=== PATIENT | female | born 1950 | race Caucasian/White ===

== ENCOUNTER 2017-03-21 19:28 | Inpatient (IN) | payer BC ==
[~2017-03-21] VITALS: Ht 165.1 cm; Wt 86.0 kg
[2017-03-21 19:55] LABS: BASOPHIL COUNT 0.1 K/uL (0-0.1); EOSINOPHIL (%) 0.6 % (0-5); EOSINOPHIL COUNT 0.1 K/uL (0-0.3); HEMATOCRIT 41.6 % (36.0-46.0); IMMATURE GRANULOCYTE (%) 1.4 % (0.0-0.7); IMMATURE GRANULOCYTE COUNT 0.2 K/uL; INSTRUMENT ABS NEUTROPHIL CT 9.5 K/uL; LYMPHOCYTE COUNT 4.9 K/uL (1.0-2.8); MCH 28.3 PG (29.0-34.0); MCHC 32.2 G/DL (30.0-36.0); MCV 87.8 FL (83-99); MEAN PLAT.VOLUME 9.2 uM^3 (9.5-12.4); MONOCYTE (%) 5.9 % (3-12); MONOCYTE COUNT 0.9 K/uL (0-0.8); NEUTROPHIL (%) 60.6 % (45-76); NEUTROPHIL COUNT 9.5 K/uL (1.8-6.4); PLATELET COUNT 348 K/uL (156-360); RBC DIS.WIDTH-SD 42.1 % (39-53); RED BLOOD COUNT 4.74 M/uL (3.80-5.20); WHITE BLOOD COUNT 15.6 K/uL (4.1-10.2)
[2017-03-21 20:03] LABS: POINT-OF-CARE METER ID UU13113702
[2017-03-21 20:05] LABS: AMYLASE 76 IU/L (1-118); CHLORIDE 104 mEq/L (99-109); POTASSIUM 3.6 mEq/L (3.7-5.4); SODIUM 139 mEq/L (136-147)
[2017-03-21 20:07] LABS: GLUCOSE 296 mg/dL (70-99)
[2017-03-21 20:08] LABS: ANION GAP 19 MEQ/L (2-14)
[2017-03-21 20:09] LABS: INTER. NORMALIZED RATIO 1.1
[2017-03-21 20:10] LABS: SERUM ETHYL ALCOHOL < 10 mg/dL
[2017-03-21 20:11] LABS: GFR ESTIMATE (CALCULATED) 44 mL/min/
[2017-03-21 20:12] LABS: PTT 26.8 SEC (25-37); UREA NITROGEN (BUN) 20 mg/dL (9-23)
[2017-03-21 20:14] LABS: LIPASE 24 U/L (1.0-51.0)
[2017-03-21 20:18] LABS: TROP-I INTERPRETATION POSITIVE
[2017-03-21 22:23] VITALS: BP 145/97
[2017-03-21 22:30] VITALS: BP 137/97
[2017-03-21 23:00] VITALS: BP 127/76
[2017-03-21 23:46] LABS: BASE EXCESS -6.9 mEq/L (-3 to +3); BICARBONATE 19.7 mEq/L (22-26); COMMENTS - BLOOD GASES C+; DEVICE 840; FI02 100 %; MECHANICAL RATE 20 resp/min; METHEMOGLOBIN 1.4 % (0-1.5); MODE AC; PCO2 43 mm Hg (35-45); PEEP 5 CM/H20; PO2 193 mm Hg (80-100); SITE ALINE; TIDAL VOLUME 400 ML; TOTAL RESP RATE 20 resp/min; pH 7.27 (7.35-7.45)
[2017-03-21 23:48] LABS: METH RESISTANT S AUREUS PCR NEGATIVE (NEGATIVE); PROBE CHECK PASS; SPECIMEN PROCESSING CONTROL PASS
[2017-03-22] VITALS (27 sets, daily range): BP systolic 62–186; BP diastolic 44–122
[2017-03-22 03:19] LABS: EOSINOPHIL (%) 0 % (0-5); HEMATOCRIT 36.3 % (36.0-46.0); IMMATURE GRANULOCYTE (%) 0.6 % (0.0-0.7); IMMATURE GRANULOCYTE COUNT 0.1 K/uL; INSTRUMENT ABS NEUTROPHIL CT 17.7 K/uL; LYMPHOCYTE COUNT 1.9 K/uL (1.0-2.8); MCH 28.7 PG (29.0-34.0); MCHC 32.2 G/DL (30.0-36.0); MEAN PLAT.VOLUME 9.3 uM^3 (9.5-12.4); MONOCYTE (%) 5.3 % (3-12); MONOCYTE COUNT 1.1 K/uL (0-0.8); NEUTROPHIL (%) 85.1 % (45-76); NEUTROPHIL COUNT 17.7 K/uL (1.8-6.4); PLATELET COUNT 387 K/uL (156-360); RBC DIS.WIDTH-CV 13.3 % (11.8-14.6); RBC DIS.WIDTH-SD 43.6 % (39-53); RED BLOOD COUNT 4.08 M/uL (3.80-5.20); WHITE BLOOD COUNT 20.8 K/uL (4.1-10.2)
[2017-03-22 03:27] LABS: INTER. NORMALIZED RATIO 1.2; PROTHROMBIN TIME 13.1 SEC (10.2-12.9)
[2017-03-22 03:33] LABS: CHLORIDE 106 mEq/L (99-109); POTASSIUM 3.9 mEq/L (3.7-5.4); SODIUM 140 mEq/L (136-147)
[2017-03-22 03:35] LABS: GLUCOSE 204 mg/dL (70-99)
[2017-03-22 03:36] LABS: ANION GAP 15 MEQ/L (2-14)
[2017-03-22 03:39] LABS: GFR ESTIMATE (CALCULATED) 48 mL/min/
[2017-03-22 03:40] LABS: UREA NITROGEN (BUN) 22 mg/dL (9-23)
[2017-03-22 03:54] LABS: TROP-I INTERPRETATION POSITIVE
[2017-03-22 04:00] LABS: TROPONIN-I 48.81 ng/mL (0.0-0.30)
[2017-03-22 04:08] LABS: TRIGLYCERIDES 359 MG/DL (Normal: <150)
[2017-03-22 06:07] LABS: BASE EXCESS -7.7 mEq/L (-3 to +3); BICARBONATE 17.5 mEq/L (22-26); COMMENTS - BLOOD GASES C+; DEVICE VENT; FI02 60 %; MECHANICAL RATE 24 resp/min; METHEMOGLOBIN 1.5 % (0-1.5); MODE AC; PCO2 34 mm Hg (35-45); PEEP 5 CM/H20; PO2 113 mm Hg (80-100); SITE LR; TIDAL VOLUME 430 ML; TOTAL RESP RATE 34 resp/min; pH 7.32 (7.35-7.45)
[2017-03-22 06:33] LABS: POINT-OF-CARE METER ID UU14208751
[2017-03-22 07:03] LABS: EOSINOPHIL (%) 0 % (0-5); HEMATOCRIT 33.9 % (36.0-46.0); IMMATURE GRANULOCYTE (%) 0.5 % (0.0-0.7); IMMATURE GRANULOCYTE COUNT 0.1 K/uL; INSTRUMENT ABS NEUTROPHIL CT 15.2 K/uL; LYMPHOCYTE COUNT 1.9 K/uL (1.0-2.8); MCH 28.6 PG (29.0-34.0); MCHC 31.9 G/DL (30.0-36.0); MCV 89.9 FL (83-99); MEAN PLAT.VOLUME 9.6 uM^3 (9.5-12.4); MONOCYTE (%) 5.3 % (3-12); NEUTROPHIL (%) 83.5 % (45-76); NEUTROPHIL COUNT 15.2 K/uL (1.8-6.4); PLATELET COUNT 359 K/uL (156-360); RBC DIS.WIDTH-CV 13.3 % (11.8-14.6); RBC DIS.WIDTH-SD 43.7 % (39-53); RED BLOOD COUNT 3.77 M/uL (3.80-5.20); WHITE BLOOD COUNT 18.3 K/uL (4.1-10.2)
[2017-03-22 07:11] LABS: INTER. NORMALIZED RATIO 1.2; PROTHROMBIN TIME 13.2 SEC (10.2-12.9)
[2017-03-22 07:14] LABS: PTT 27.3 SEC (25-37)
[2017-03-22 07:19] LABS: ANION GAP 14 MEQ/L (2-14); CHLORIDE 105 MEQ/L (99-109); MAGNESIUM 2.2 mg/dl (1.3-2.7); POTASSIUM 4.2 MEQ/L (3.7-5.4); SAMPLE HEMOLYSIS CHECK 0; SAMPLE ICTERIC CHECK 0; SAMPLE LIPEMIA CHECK 1; SODIUM 140 MEQ/L (136-147)
[2017-03-22 07:25] LABS: Estimated Average Glucose 126 mg/dL (70-123); GFR ESTIMATE (CALCULATED) 53 mL/min/; GLUCOSE 204 mg/dL (70-99); UREA NITROGEN (BUN) 24 mg/dL (9-23)
[2017-03-22 07:32] LABS: HDL CHOLESTEROL 28 MG/DL (Desirable>=50); NON-HDL CHOLESTEROL 178 mg/dL (Desirable<160); TOTAL CHOLESTEROL 206 mg/dL (Desirable<200); TRIGLYCERIDES 529 MG/DL (Normal: <150)
[2017-03-22 07:33] LABS: ALKALINE PHOSPHATASE 95 IU/L (3-129); ANION GAP 12 MEQ/L (2-14); CHLORIDE 107 MEQ/L (99-109); GFR ESTIMATE (CALCULATED) 48 mL/min/; GLUCOSE 197 mg/dL (70-99); POTASSIUM 4.2 MEQ/L (3.7-5.4); SAMPLE HEMOLYSIS CHECK 0; SAMPLE ICTERIC CHECK 0; SAMPLE LIPEMIA CHECK 0; SODIUM 142 MEQ/L (136-147); TOTAL BILIRUBIN 0.5 MG/DL (0.0-1.0); UREA NITROGEN (BUN) 23 mg/dL (9-23)
[2017-03-22 07:47] LABS: TROP-I INTERPRETATION POSITIVE; TROPONIN-I 55.59 ng/mL (0.0-0.30)
[2017-03-22 10:54] LABS: BASE EXCESS -7.9 mEq/L (-3 to +3); BICARBONATE 17.6 mEq/L (22-26); CARBOXY HGB 1.7 % (0-5); COMMENTS - BLOOD GASES A+C+; DEVICE VENT; FI02 60 %; MECHANICAL RATE 24 resp/min; METHEMOGLOBIN 1.7 % (0-1.5); MODE ACVC; PCO2 35 mm Hg (35-45); PEEP 5 CM/H20; PO2 129 mm Hg (80-100); SITE LR; TIDAL VOLUME 430 ML; TOTAL RESP RATE 24 resp/min; pH 7.31 (7.35-7.45)
[2017-03-22 11:53] LABS: POINT-OF-CARE METER ID UU14208751
[2017-03-22 12:57] LABS: EOSINOPHIL (%) 0 % (0-5); HEMATOCRIT 34.1 % (36.0-46.0); IMMATURE GRANULOCYTE (%) 0.6 % (0.0-0.7); IMMATURE GRANULOCYTE COUNT 0.1 K/uL; LYMPHOCYTE COUNT 2.8 K/uL (1.0-2.8); MCH 29.8 PG (29.0-34.0); MCHC 33.1 G/DL (30.0-36.0); MEAN PLAT.VOLUME 9.7 uM^3 (9.5-12.4); MONOCYTE (%) 7.6 % (3-12); MONOCYTE COUNT 1.5 K/uL (0-0.8); NEUTROPHIL (%) 77.1 % (45-76); PLATELET COUNT 308 K/uL (156-360); RBC DIS.WIDTH-CV 13.6 % (11.8-14.6); RBC DIS.WIDTH-SD 44.6 % (39-53); RED BLOOD COUNT 3.79 M/uL (3.80-5.20); WHITE BLOOD COUNT 19.5 K/uL (4.1-10.2)
[2017-03-22 13:28] LABS: ANION GAP 11 MEQ/L (2-14); CHLORIDE 108 MEQ/L (99-109); GFR ESTIMATE (CALCULATED) 53 mL/min/; GLUCOSE 171 mg/dL (70-99); MAGNESIUM 2.2 mg/dl (1.3-2.7); POTASSIUM 4.1 MEQ/L (3.7-5.4); SAMPLE HEMOLYSIS CHECK 0; SAMPLE ICTERIC CHECK 0; SAMPLE LIPEMIA CHECK 1; SODIUM 142 MEQ/L (136-147); UREA NITROGEN (BUN) 25 mg/dL (9-23)
[2017-03-22 13:45] LABS: CREATINE KINASE 2552 IU/L (1-294); TOTAL CK 2552 IU/L (1-294)
[2017-03-22 13:46] LABS: TROP-I INTERPRETATION POSITIVE; TROPONIN-I 46.61 ng/mL (0.0-0.30)
[2017-03-22 14:14] LABS: CK-MB 437.6 ng/mL (0.0-4.9)
[2017-03-22 16:59] LABS: POINT-OF-CARE METER ID UU14174217
[2017-03-22 18:12] LABS: EOSINOPHIL (%) 0 % (0-5); HEMATOCRIT 35.1 % (36.0-46.0); IMMATURE GRANULOCYTE (%) 0.5 % (0.0-0.7); IMMATURE GRANULOCYTE COUNT 0.1 K/uL; INSTRUMENT ABS NEUTROPHIL CT 11.8 K/uL; LYMPHOCYTE COUNT 2.4 K/uL (1.0-2.8); MCH 28.6 PG (29.0-34.0); MCHC 31.9 G/DL (30.0-36.0); MCV 89.5 FL (83-99); MEAN PLAT.VOLUME 9.5 uM^3 (9.5-12.4); MONOCYTE (%) 6.9 % (3-12); MONOCYTE COUNT 1.1 K/uL (0-0.8); NEUTROPHIL (%) 76.4 % (45-76); NEUTROPHIL COUNT 11.8 K/uL (1.8-6.4); PLATELET COUNT 270 K/uL (156-360); RBC DIS.WIDTH-CV 13.4 % (11.8-14.6); RBC DIS.WIDTH-SD 43.9 % (39-53); RED BLOOD COUNT 3.92 M/uL (3.80-5.20); WHITE BLOOD COUNT 15.4 K/uL (4.1-10.2)
[2017-03-22 18:21] LABS: INTER. NORMALIZED RATIO 1.1; PROTHROMBIN TIME 12.3 SEC (10.2-12.9)
[2017-03-22 18:23] LABS: PTT 26.9 SEC (25-37)
[2017-03-22 18:28] LABS: ANION GAP 13 MEQ/L (2-14); CHLORIDE 109 MEQ/L (99-109); GFR ESTIMATE (CALCULATED) > 59 mL/min/; GLUCOSE 141 mg/dL (70-99); MAGNESIUM 2.3 mg/dl (1.3-2.7); SAMPLE HEMOLYSIS CHECK 0; SAMPLE ICTERIC CHECK 0; SAMPLE LIPEMIA CHECK 0; SODIUM 144 MEQ/L (136-147); UREA NITROGEN (BUN) 27 mg/dL (9-23)
[2017-03-22 18:31] LABS: TROP-I INTERPRETATION POSITIVE
[2017-03-22 20:27] LABS: TOTAL CK 2621 IU/L (1-294)
[2017-03-22 20:28] LABS: CREATINE KINASE 2621 IU/L (1-294)
[2017-03-22 20:59] LABS: CK-MB 533.2 ng/mL (0.0-4.9)
[2017-03-23] VITALS (22 sets, daily range): BP systolic 92–159; BP diastolic 58–92
[2017-03-23 01:05] LABS: POINT-OF-CARE METER ID UU14208751
[2017-03-23 01:54] LABS: BASE EXCESS -2.1 mEq/L (-3 to +3); BICARBONATE 23.7 mEq/L (22-26); CARBOXY HGB 1.4 % (0-5); COMMENTS - BLOOD GASES C+; DEVICE VENT; FI02 60 %; MECHANICAL RATE 12 resp/min; METHEMOGLOBIN 1.9 % (0-1.5); MODE AC; PCO2 44 mm Hg (35-45); PEEP 8 CM/H20; PO2 124 mm Hg (80-100); SITE LR; TIDAL VOLUME 500 ML; TOTAL RESP RATE 20 resp/min; pH 7.34 (7.35-7.45)
[2017-03-23 02:54] LABS: EOSINOPHIL (%) 0.2 % (0-5); HEMATOCRIT 33.3 % (36.0-46.0); IMMATURE GRANULOCYTE (%) 0.5 % (0.0-0.7); IMMATURE GRANULOCYTE COUNT 0.1 K/uL; INSTRUMENT ABS NEUTROPHIL CT 14.1 K/uL; LYMPHOCYTE COUNT 3.2 K/uL (1.0-2.8); MCH 28.8 PG (29.0-34.0); MCHC 32.4 G/DL (30.0-36.0); MCV 88.8 FL (83-99); MEAN PLAT.VOLUME 9.6 uM^3 (9.5-12.4); MONOCYTE (%) 8.2 % (3-12); MONOCYTE COUNT 1.6 K/uL (0-0.8); NEUTROPHIL (%) 74.3 % (45-76); NEUTROPHIL COUNT 14.1 K/uL (1.8-6.4); PLATELET COUNT 288 K/uL (156-360); RBC DIS.WIDTH-CV 13.5 % (11.8-14.6); RBC DIS.WIDTH-SD 44.3 % (39-53); RED BLOOD COUNT 3.75 M/uL (3.80-5.20)
[2017-03-23 03:02] LABS: INTER. NORMALIZED RATIO 1.1; PROTHROMBIN TIME 11.8 SEC (10.2-12.9)
[2017-03-23 03:09] LABS: CHLORIDE 108 mEq/L (99-109); POTASSIUM 4.2 mEq/L (3.7-5.4); SODIUM 143 mEq/L (136-147)
[2017-03-23 03:11] LABS: GLUCOSE 120 mg/dL (70-99)
[2017-03-23 03:12] LABS: ANION GAP 16 MEQ/L (2-14)
[2017-03-23 03:15] LABS: GFR ESTIMATE (CALCULATED) > 59 mL/min/
[2017-03-23 03:16] LABS: UREA NITROGEN (BUN) 30 mg/dL (9-23)
[2017-03-23 03:17] LABS: MAGNESIUM 2.4 mg/dL (1.3-2.7)
[2017-03-23 03:19] LABS: TROP-I INTERPRETATION POSITIVE
[2017-03-23 03:23] LABS: TROPONIN-I 43.71 ng/mL (0.0-0.30)
[2017-03-23 08:23] LABS: EOSINOPHIL (%) 0.1 % (0-5); HEMATOCRIT 29.5 % (36.0-46.0); IMMATURE GRANULOCYTE (%) 0.5 % (0.0-0.7); IMMATURE GRANULOCYTE COUNT 0.1 K/uL; INSTRUMENT ABS NEUTROPHIL CT 13.6 K/uL; LYMPHOCYTE COUNT 1.9 K/uL (1.0-2.8); MCH 28.6 PG (29.0-34.0); MCHC 32.2 G/DL (30.0-36.0); MCV 88.9 FL (83-99); MEAN PLAT.VOLUME 9.8 uM^3 (9.5-12.4); MONOCYTE (%) 5.4 % (3-12); MONOCYTE COUNT 0.9 K/uL (0-0.8); NEUTROPHIL (%) 82.3 % (45-76); NEUTROPHIL COUNT 13.6 K/uL (1.8-6.4); PLATELET COUNT 248 K/uL (156-360); RBC DIS.WIDTH-CV 13.5 % (11.8-14.6); RBC DIS.WIDTH-SD 44.2 % (39-53); RED BLOOD COUNT 3.32 M/uL (3.80-5.20); WHITE BLOOD COUNT 16.5 K/uL (4.1-10.2)
[2017-03-23 08:29] LABS: INTER. NORMALIZED RATIO 1.1; PROTHROMBIN TIME 12.5 SEC (10.2-12.9)
[2017-03-23 08:32] LABS: PTT 32.8 SEC (25-37)
[2017-03-23 08:47] LABS: ANION GAP 10 MEQ/L (2-14); CHLORIDE 112 MEQ/L (99-109); GFR ESTIMATE (CALCULATED) 53 mL/min/; GLUCOSE 154 mg/dL (70-99); MAGNESIUM 2.2 mg/dl (1.3-2.7); SAMPLE HEMOLYSIS CHECK 0; SAMPLE ICTERIC CHECK 0; SAMPLE LIPEMIA CHECK 0; SODIUM 143 MEQ/L (136-147); UREA NITROGEN (BUN) 30 mg/dL (9-23)
[2017-03-23 08:52] LABS: TROP-I INTERPRETATION POSITIVE; TROPONIN-I 32.43 ng/mL (0.0-0.30)
[2017-03-23 11:46] LABS: POINT-OF-CARE METER ID UU14208751
[2017-03-23 13:24] LABS: EOSINOPHIL (%) 0.1 % (0-5); HEMATOCRIT 28.4 % (36.0-46.0); IMMATURE GRANULOCYTE (%) 0.4 % (0.0-0.7); IMMATURE GRANULOCYTE COUNT 0.1 K/uL; INSTRUMENT ABS NEUTROPHIL CT 12.8 K/uL; LYMPHOCYTE COUNT 2.6 K/uL (1.0-2.8); MCH 28.9 PG (29.0-34.0); MCHC 32.4 G/DL (30.0-36.0); MCV 89.3 FL (83-99); MEAN PLAT.VOLUME 9.7 uM^3 (9.5-12.4); MONOCYTE (%) 5.9 % (3-12); NEUTROPHIL (%) 77.9 % (45-76); NEUTROPHIL COUNT 12.8 K/uL (1.8-6.4); PLATELET COUNT 250 K/uL (156-360); RBC DIS.WIDTH-CV 13.5 % (11.8-14.6); RBC DIS.WIDTH-SD 44.3 % (39-53); RED BLOOD COUNT 3.18 M/uL (3.80-5.20); WHITE BLOOD COUNT 16.4 K/uL (4.1-10.2)
[2017-03-23 13:35] LABS: INTER. NORMALIZED RATIO 1.1; PROTHROMBIN TIME 12.2 SEC (10.2-12.9)
[2017-03-23 13:38] LABS: PTT 32.6 SEC (25-37)
[2017-03-23 13:51] LABS: TROPONIN-I 28.89 ng/mL (0.0-0.30)
[2017-03-23 13:52] LABS: TROP-I INTERPRETATION POSITIVE
[2017-03-23 13:54] LABS: ANION GAP 12 MEQ/L (2-14); CHLORIDE 112 MEQ/L (99-109); GFR ESTIMATE (CALCULATED) 53 mL/min/; MAGNESIUM 2.1 mg/dl (1.3-2.7); POTASSIUM 3.9 MEQ/L (3.7-5.4); SAMPLE HEMOLYSIS CHECK 0; SAMPLE ICTERIC CHECK 0; SAMPLE LIPEMIA CHECK 0; SODIUM 144 MEQ/L (136-147); UREA NITROGEN (BUN) 29 mg/dL (9-23)
[2017-03-23 13:56] LABS: GLUCOSE 103 mg/dL (70-99)
[2017-03-23 17:50] LABS: POINT-OF-CARE METER ID UU14208751
[2017-03-23 20:21] LABS: HEMATOCRIT 27.5 % (36.0-46.0); MCH 29.5 PG (29.0-34.0); MCHC 32.4 G/DL (30.0-36.0); MCV 91.1 FL (83-99); RBC DIS.WIDTH-CV 13.9 % (11.8-14.6); RED BLOOD COUNT 3.02 M/uL (3.80-5.20); WHITE BLOOD COUNT 14.4 K/uL (4.1-10.2)
[2017-03-23 20:24] LABS: PLATELET COUNT 135 K/uL (156-360); PROTHROMBIN TIME 11.4 SEC (10.2-12.9)
[2017-03-23 20:36] LABS: ANION GAP 14 MEQ/L (2-14); CHLORIDE 111 MEQ/L (99-109); MAGNESIUM 2.1 mg/dl (1.3-2.7); SAMPLE HEMOLYSIS CHECK 0; SAMPLE ICTERIC CHECK 0; SAMPLE LIPEMIA CHECK 0; SODIUM 146 MEQ/L (136-147)
[2017-03-23 20:38] LABS: PTT ND SEC (25-37)
[2017-03-23 20:41] LABS: GFR ESTIMATE (CALCULATED) 48 mL/min/; GLUCOSE 123 mg/dL (70-99); UREA NITROGEN (BUN) 32 mg/dL (9-23)
[2017-03-23 20:45] LABS: TROP-I INTERPRETATION POSITIVE; TROPONIN-I 37.79 ng/mL (0.0-0.30)
[2017-03-23 21:14] LABS: EOSINOPHIL (%) 0 % (0-5); IMMATURE GRANULOCYTE (%) 0.5 % (0.0-0.7); IMMATURE GRANULOCYTE COUNT 0.1 K/uL; INSTRUMENT ABS NEUTROPHIL CT 11.3 K/uL; LYMPHOCYTE COUNT 2.1 K/uL (1.0-2.8); MONOCYTE (%) 6.1 % (3-12); MONOCYTE COUNT 0.9 K/uL (0-0.8); NEUTROPHIL (%) 78.7 % (45-76); NEUTROPHIL COUNT 11.3 K/uL (1.8-6.4); PLAT.SUFFICIENCY DECREASED
[2017-03-24] VITALS (25 sets, daily range): BP systolic 71–171; BP diastolic 44–111
[2017-03-24 00:28] LABS: POINT-OF-CARE METER ID UU13113731
[2017-03-24 06:16] LABS: POINT-OF-CARE METER ID UU14174217
[2017-03-24 06:49] LABS: EOSINOPHIL (%) 0 % (0-5); HEMATOCRIT 24.6 % (36.0-46.0); IMMATURE GRANULOCYTE (%) 0.6 % (0.0-0.7); IMMATURE GRANULOCYTE COUNT 0.1 K/uL; INSTRUMENT ABS NEUTROPHIL CT 9.4 K/uL; LYMPHOCYTE COUNT 2.3 K/uL (1.0-2.8); MCH 29.6 PG (29.0-34.0); MCHC 33.3 G/DL (30.0-36.0); MCV 88.8 FL (83-99); MEAN PLAT.VOLUME 10.3 uM^3 (9.5-12.4); MONOCYTE (%) 7.1 % (3-12); MONOCYTE COUNT 0.9 K/uL (0-0.8); NEUTROPHIL (%) 74.3 % (45-76); NEUTROPHIL COUNT 9.4 K/uL (1.8-6.4); PLATELET COUNT 231 K/uL (156-360); RBC DIS.WIDTH-CV 13.9 % (11.8-14.6); RBC DIS.WIDTH-SD 45.4 % (39-53); RED BLOOD COUNT 2.77 M/uL (3.80-5.20); WHITE BLOOD COUNT 12.6 K/uL (4.1-10.2)
[2017-03-24 06:55] LABS: INTER. NORMALIZED RATIO 1.2; PROTHROMBIN TIME 13.1 SEC (10.2-12.9); PTT 27.3 SEC (25-37)
[2017-03-24 07:33] LABS: TROP-I INTERPRETATION POSITIVE; TROPONIN-I 64.31 ng/mL (0.0-0.30)
[2017-03-24 07:37] LABS: ANION GAP 10 MEQ/L (2-14); CHLORIDE 112 MEQ/L (99-109); GFR ESTIMATE (CALCULATED) 34 mL/min/; GLUCOSE 130 mg/dL (70-99); MAGNESIUM 2.2 mg/dl (1.3-2.7); POTASSIUM 3.9 MEQ/L (3.7-5.4); SAMPLE HEMOLYSIS CHECK 0; SAMPLE ICTERIC CHECK 0; SAMPLE LIPEMIA CHECK 0; SODIUM 145 MEQ/L (136-147); UREA NITROGEN (BUN) 37 mg/dL (9-23)
[2017-03-24 07:38] LABS: CREATINE KINASE 1187 IU/L (1-294)
[2017-03-24 11:51] LABS: POINT-OF-CARE METER ID UU14174217
[2017-03-24 17:40] LABS: POINT-OF-CARE METER ID UU14174217
[2017-03-25] VITALS (30 sets, daily range): BP systolic 105–191; BP diastolic 47–123
[2017-03-25 00:22] LABS: POINT-OF-CARE METER ID UU14174217
[2017-03-25 05:37] LABS: CHLORIDE 116 mEq/L (99-109); POTASSIUM 3.7 mEq/L (3.7-5.4); SODIUM 148 mEq/L (136-147)
[2017-03-25 05:38] LABS: MAGNESIUM 2.5 mg/dL (1.3-2.7)
[2017-03-25 05:39] LABS: GLUCOSE 118 mg/dL (70-99)
[2017-03-25 05:41] LABS: ANION GAP 9 MEQ/L (2-14)
[2017-03-25 05:42] LABS: INTER. NORMALIZED RATIO 1.1; PROTHROMBIN TIME 12.3 SEC (10.2-12.9)
[2017-03-25 05:43] LABS: EOSINOPHIL (%) 0.1 % (0-5); HEMATOCRIT 20.8 % (36.0-46.0); IMMATURE GRANULOCYTE (%) 0.5 % (0.0-0.7); IMMATURE GRANULOCYTE COUNT 0.1 K/uL; INSTRUMENT ABS NEUTROPHIL CT 6.6 K/uL; LYMPHOCYTE COUNT 2.2 K/uL (1.0-2.8); MCH 28.6 PG (29.0-34.0); MCHC 32.7 G/DL (30.0-36.0); MCV 87.4 FL (83-99); MEAN PLAT.VOLUME 10.2 uM^3 (9.5-12.4); MONOCYTE (%) 6.7 % (3-12); MONOCYTE COUNT 0.6 K/uL (0-0.8); NEUTROPHIL (%) 69.7 % (45-76); NEUTROPHIL COUNT 6.6 K/uL (1.8-6.4); PLATELET COUNT 176 K/uL (156-360); RBC DIS.WIDTH-CV 14.2 % (11.8-14.6); RBC DIS.WIDTH-SD 44.7 % (39-53); RED BLOOD COUNT 2.38 M/uL (3.80-5.20); WHITE BLOOD COUNT 9.5 K/uL (4.1-10.2)
[2017-03-25 05:44] LABS: UREA NITROGEN (BUN) 40 mg/dL (9-23)
[2017-03-25 05:45] LABS: PTT 27.2 SEC (25-37)
[2017-03-25 05:46] LABS: TROP-I INTERPRETATION POSITIVE
[2017-03-25 05:48] LABS: GFR ESTIMATE (CALCULATED) 53 mL/min/; TROPONIN-I 22.15 ng/mL (0.0-0.30)
[2017-03-25 06:28] LABS: POINT-OF-CARE METER ID UU14174217
[2017-03-25 06:36] LABS: HEMATOCRIT 20.3 % (36.0-46.0); MCV 87.9 FL (83-99); MEAN PLAT.VOLUME 9.8 uM^3 (9.5-12.4); PLATELET COUNT 171 K/uL (156-360); RBC DIS.WIDTH-CV 14.1 % (11.8-14.6); RBC DIS.WIDTH-SD 44.7 % (39-53); RED BLOOD COUNT 2.31 M/uL (3.80-5.20); WHITE BLOOD COUNT 9.9 K/uL (4.1-10.2)
[2017-03-25 11:50] LABS: POINT-OF-CARE METER ID UU14174217
[2017-03-25 18:02] LABS: POINT-OF-CARE METER ID UU13113748
[2017-03-25 20:10] LABS: HEMATOCRIT 29.1 % (36.0-46.0); MCV 88.7 FL (83-99)
[2017-03-25 23:44] LABS: POINT-OF-CARE METER ID UU13113748; POINT-OF-CARE USER ID PHATLC
[2017-03-26] VITALS (25 sets, daily range): BP systolic 0–189; BP diastolic 0–93
[2017-03-26 06:01] LABS: POINT-OF-CARE METER ID UU13113731; POINT-OF-CARE USER ID PHATLC
[2017-03-26 06:18] LABS: EOSINOPHIL (%) 0.2 % (0-5); HEMATOCRIT 27.9 % (36.0-46.0); IMMATURE GRANULOCYTE (%) 0.8 % (0.0-0.7); IMMATURE GRANULOCYTE COUNT 0.1 K/uL; INSTRUMENT ABS NEUTROPHIL CT 9.7 K/uL; LYMPHOCYTE COUNT 2.1 K/uL (1.0-2.8); MCH 29.8 PG (29.0-34.0); MCHC 34.1 G/DL (30.0-36.0); MCV 87.5 FL (83-99); MEAN PLAT.VOLUME 9.8 uM^3 (9.5-12.4); MONOCYTE (%) 6.1 % (3-12); MONOCYTE COUNT 0.8 K/uL (0-0.8); NEUTROPHIL (%) 76.1 % (45-76); NEUTROPHIL COUNT 9.7 K/uL (1.8-6.4); NRBC (%) 0.2 /100 WBC (0-0); PLATELET COUNT 218 K/uL (156-360); RBC DIS.WIDTH-CV 14.5 % (11.8-14.6); RBC DIS.WIDTH-SD 45.5 % (39-53); WHITE BLOOD COUNT 12.7 K/uL (4.1-10.2)
[2017-03-26 06:36] LABS: INTER. NORMALIZED RATIO 1.1; PROTHROMBIN TIME 12.6 SEC (10.2-12.9)
[2017-03-26 06:39] LABS: PTT 20.1 SEC (25-37)
[2017-03-26 06:41] LABS: RED BLOOD COUNT 3.19 M/uL (3.80-5.20)
[2017-03-26 06:47] LABS: ANION GAP 11 MEQ/L (2-14); CHLORIDE 113 MEQ/L (99-109); GFR ESTIMATE (CALCULATED) > 59 mL/min/; GLUCOSE 125 mg/dL (70-99); MAGNESIUM 2.1 mg/dl (1.3-2.7); POTASSIUM 3.2 MEQ/L (3.7-5.4); SAMPLE HEMOLYSIS CHECK 0; SAMPLE ICTERIC CHECK 0; SAMPLE LIPEMIA CHECK 0; SODIUM 152 MEQ/L (136-147); UREA NITROGEN (BUN) 25 mg/dL (9-23)
[2017-03-26 07:05] LABS: TROP-I INTERPRETATION POSITIVE; TROPONIN-I 21.08 ng/mL (0.0-0.30)
[2017-03-26 12:11] LABS: POINT-OF-CARE METER ID UU13113731
[2017-03-26 12:47] LABS: ABSOLUTE RETICULOCYTE CT. 0.1 M/uL (0.02-0.08); IMM.RETIC FRACTION 32.1 % (3-19); RETICULOCYTE COUNT 2.3 % (0.5-1.8)
[2017-03-26 17:55] LABS: ALKALINE PHOSPHATASE 75 IU/L (3-129); DIRECT BILIRUBIN 0.5 mg/dL (0.0-0.3); LACTATE DEHYDROGENASE 571 IU/L (20-246)
[2017-03-26 18:51] LABS: POINT-OF-CARE METER ID UU13113731
[2017-03-27] VITALS (16 sets, daily range): BP systolic 127–186; BP diastolic 60–98
[2017-03-27 01:04] LABS: POINT-OF-CARE METER ID UU13113731
[2017-03-27 06:06] LABS: POINT-OF-CARE METER ID UU14208751
[2017-03-27 06:24] LABS: EOSINOPHIL (%) 0.8 % (0-5); EOSINOPHIL COUNT 0.1 K/uL (0-0.3); HEMATOCRIT 28.2 % (36.0-46.0); IMMATURE GRANULOCYTE (%) 0.7 % (0.0-0.7); IMMATURE GRANULOCYTE COUNT 0.1 K/uL; INSTRUMENT ABS NEUTROPHIL CT 7.5 K/uL; LYMPHOCYTE COUNT 2.2 K/uL (1.0-2.8); MCH 29.2 PG (29.0-34.0); MCHC 32.6 G/DL (30.0-36.0); MCV 89.5 FL (83-99); MEAN PLAT.VOLUME 9.6 uM^3 (9.5-12.4); MONOCYTE (%) 9.1 % (3-12); NEUTROPHIL (%) 69.1 % (45-76); NEUTROPHIL COUNT 7.5 K/uL (1.8-6.4); PLATELET COUNT 214 K/uL (156-360); RBC DIS.WIDTH-CV 14.6 % (11.8-14.6); RBC DIS.WIDTH-SD 46.8 % (39-53); RED BLOOD COUNT 3.15 M/uL (3.80-5.20); WHITE BLOOD COUNT 10.8 K/uL (4.1-10.2)
[2017-03-27 06:42] LABS: INTER. NORMALIZED RATIO 1.2
[2017-03-27 06:45] LABS: PTT 20.9 SEC (25-37)
[2017-03-27 06:46] LABS: ALKALINE PHOSPHATASE 74 IU/L (3-129); ANION GAP 10 MEQ/L (2-14); CHLORIDE 111 MEQ/L (99-109); DIRECT BILIRUBIN 0.5 mg/dL (0.0-0.3); GFR ESTIMATE (CALCULATED) > 59 mL/min/; GLUCOSE 108 mg/dL (70-99); LACTATE DEHYDROGENASE 525 IU/L (20-246); MAGNESIUM 2.3 mg/dl (1.3-2.7); POTASSIUM 3.5 MEQ/L (3.7-5.4); SAMPLE HEMOLYSIS CHECK 0; SAMPLE ICTERIC CHECK 0; SAMPLE LIPEMIA CHECK 0; SODIUM 149 MEQ/L (136-147); TOTAL BILIRUBIN 2.4 MG/DL (0.0-1.0); UREA NITROGEN (BUN) 26 mg/dL (9-23)
[2017-03-27 07:09] LABS: TROP-I INTERPRETATION POSITIVE; TROPONIN-I 15.59 ng/mL (0.0-0.30)
[2017-03-27 12:44] LABS: POINT-OF-CARE METER ID UU14208751
[2017-03-27 14:51] LABS: HEMATOCRIT 30.2 % (36.0-46.0); MCV 90.7 FL (83-99)
[2017-03-27 18:01] LABS: POINT-OF-CARE METER ID UU13113748
[2017-03-28] VITALS (9 sets, daily range): BP systolic 141–177; BP diastolic 65–100
[2017-03-28 00:25] LABS: POINT-OF-CARE METER ID UU13113748
[2017-03-28 05:45] LABS: EOSINOPHIL (%) 2.6 % (0-5); EOSINOPHIL COUNT 0.2 K/uL (0-0.3); HEMATOCRIT 29.1 % (36.0-46.0); IMMATURE GRANULOCYTE (%) 0.8 % (0.0-0.7); IMMATURE GRANULOCYTE COUNT 0.1 K/uL; INSTRUMENT ABS NEUTROPHIL CT 5.3 K/uL; LYMPHOCYTE COUNT 2.8 K/uL (1.0-2.8); MCH 28.8 PG (29.0-34.0); MCV 90.1 FL (83-99); MEAN PLAT.VOLUME 9.8 uM^3 (9.5-12.4); MONOCYTE (%) 8.9 % (3-12); MONOCYTE COUNT 0.8 K/uL (0-0.8); NEUTROPHIL COUNT 5.3 K/uL (1.8-6.4); PLATELET COUNT 234 K/uL (156-360); RBC DIS.WIDTH-CV 14.9 % (11.8-14.6); RBC DIS.WIDTH-SD 45.5 % (39-53); RED BLOOD COUNT 3.23 M/uL (3.80-5.20); WHITE BLOOD COUNT 9.2 K/uL (4.1-10.2)
[2017-03-28 06:02] LABS: INTER. NORMALIZED RATIO 1.2; PROTHROMBIN TIME 13.3 SEC (10.2-12.9)
[2017-03-28 06:04] LABS: PTT 25.2 SEC (25-37)
[2017-03-28 06:12] LABS: ANION GAP 9 MEQ/L (2-14); CHLORIDE 110 MEQ/L (99-109); GFR ESTIMATE (CALCULATED) > 59 mL/min/; GLUCOSE 92 mg/dL (70-99); LACTATE DEHYDROGENASE 492 IU/L (20-246); MAGNESIUM 2.1 mg/dl (1.3-2.7); POTASSIUM 3.7 MEQ/L (3.7-5.4); SAMPLE HEMOLYSIS CHECK 0; SAMPLE ICTERIC CHECK 0; SAMPLE LIPEMIA CHECK 0; SODIUM 146 MEQ/L (136-147); UREA NITROGEN (BUN) 25 mg/dL (9-23)
[2017-03-28 07:17] LABS: TROP-I INTERPRETATION POSITIVE; TROPONIN-I 13.99 ng/mL (0.0-0.30)
[2017-03-28 21:28] LABS: POINT-OF-CARE USER ID ENVMNS
[2017-03-29] VITALS (8 sets, daily range): BP systolic 116–199; BP diastolic 53–93
[2017-03-29 06:24] LABS: ALKALINE PHOSPHATASE 65 IU/L (3-129); ANION GAP 7 MEQ/L (2-14); CHLORIDE 109 MEQ/L (99-109); DIRECT BILIRUBIN 0.5 mg/dL (0.0-0.3); GFR ESTIMATE (CALCULATED) > 59 mL/min/; GLUCOSE 105 mg/dL (70-99); LACTATE DEHYDROGENASE 493 IU/L (20-246); POTASSIUM 3.7 MEQ/L (3.7-5.4); SAMPLE HEMOLYSIS CHECK 0; SAMPLE ICTERIC CHECK 0; SAMPLE LIPEMIA CHECK 0; SODIUM 143 MEQ/L (136-147); TOTAL BILIRUBIN 2.3 MG/DL (0.0-1.0); UREA NITROGEN (BUN) 24 mg/dL (9-23)
[2017-03-29 09:49] LABS: EOSINOPHIL (%) 2.2 % (0-5); EOSINOPHIL COUNT 0.3 K/uL (0-0.3); HEMATOCRIT 28.8 % (36.0-46.0); IMMATURE GRANULOCYTE (%) 0.7 % (0.0-0.7); IMMATURE GRANULOCYTE COUNT 0.1 K/uL; INSTRUMENT ABS NEUTROPHIL CT 7.4 K/uL; LYMPHOCYTE COUNT 2.4 K/uL (1.0-2.8); MCH 30.6 PG (29.0-34.0); MCHC 33.3 G/DL (30.0-36.0); MCV 91.7 FL (83-99); MEAN PLAT.VOLUME 10.1 uM^3 (9.5-12.4); MONOCYTE (%) 9.9 % (3-12); MONOCYTE COUNT 1.1 K/uL (0-0.8); NEUTROPHIL (%) 65.7 % (45-76); NEUTROPHIL COUNT 7.4 K/uL (1.8-6.4); PLATELET COUNT 220 K/uL (156-360); RBC DIS.WIDTH-CV 15.2 % (11.8-14.6); RED BLOOD COUNT 3.14 M/uL (3.80-5.20); WHITE BLOOD COUNT 11.3 K/uL (4.1-10.2)
[2017-03-29 23:51] LABS: BASE EXCESS 0.7 mEq/L (-3 to +3); CARBOXY HGB 2.8 % (0-5); METHEMOGLOBIN 1.7 % (0-1.5); pH 7.47 (7.35-7.45)
[2017-03-29 23:52] LABS: COMMENTS - BLOOD GASES C+; DEVICE NC; O2 FLOW 6 L/MIN; PCO2 33 mm Hg (35-45); PO2 55 mm Hg (80-100); SITE RR; TOTAL RESP RATE 20 resp/min
[2017-03-30 00:16] LABS: HEMATOCRIT 30.4 % (36.0-46.0); MCH 28.9 PG (29.0-34.0); MCHC 32.6 G/DL (30.0-36.0); MCV 88.9 FL (83-99); MEAN PLAT.VOLUME 9.6 uM^3 (9.5-12.4); PLATELET COUNT 259 K/uL (156-360); RBC DIS.WIDTH-CV 15.2 % (11.8-14.6); RBC DIS.WIDTH-SD 44.5 % (39-53); RED BLOOD COUNT 3.42 M/uL (3.80-5.20); WHITE BLOOD COUNT 15.4 K/uL (4.1-10.2)
[2017-03-30 00:25] LABS: CHLORIDE 108 mEq/L (99-109); POTASSIUM 3.3 mEq/L (3.7-5.4); SODIUM 140 mEq/L (136-147)
[2017-03-30 00:27] LABS: GLUCOSE 145 mg/dL (70-99)
[2017-03-30 00:28] LABS: ANION GAP 11 MEQ/L (2-14)
[2017-03-30 00:31] LABS: GFR ESTIMATE (CALCULATED) > 59 mL/min/; UREA NITROGEN (BUN) 24 mg/dL (9-23)
[2017-03-30 00:36] LABS: TROP-I INTERPRETATION POSITIVE
[2017-03-30 00:37] LABS: TROPONIN-I 7.94 ng/mL (0.0-0.30)
[2017-03-30 04:39] VITALS: BP 123/87
[2017-03-30 06:34] LABS: EOSINOPHIL (%) 0.5 % (0-5); EOSINOPHIL COUNT 0.1 K/uL (0-0.3); IMMATURE GRANULOCYTE (%) 0.6 % (0.0-0.7); IMMATURE GRANULOCYTE COUNT 0.1 K/uL; INSTRUMENT ABS NEUTROPHIL CT 7.5 K/uL; LYMPHOCYTE COUNT 2.3 K/uL (1.0-2.8); MCH 30.1 PG (29.0-34.0); MCHC 32.9 G/DL (30.0-36.0); MCV 91.5 FL (83-99); MEAN PLAT.VOLUME 9.9 uM^3 (9.5-12.4); MONOCYTE (%) 9.6 % (3-12); MONOCYTE COUNT 1.1 K/uL (0-0.8); NEUTROPHIL (%) 67.9 % (45-76); NEUTROPHIL COUNT 7.5 K/uL (1.8-6.4); PLATELET COUNT 234 K/uL (156-360); RBC DIS.WIDTH-CV 15.6 % (11.8-14.6); RBC DIS.WIDTH-SD 46.4 % (39-53); RED BLOOD COUNT 3.06 M/uL (3.80-5.20); WHITE BLOOD COUNT 11.1 K/uL (4.1-10.2)
[2017-03-30 06:59] LABS: ALKALINE PHOSPHATASE 64 IU/L (3-129); DIRECT BILIRUBIN 0.2 mg/dL (0.0-0.3); TOTAL BILIRUBIN 1.9 MG/DL (0.0-1.0)
[2017-03-30 07:00] LABS: LACTATE DEHYDROGENASE 626 IU/L (20-246)
[2017-03-30 08:00] VITALS: BP 164/77
[2017-03-30 12:30] VITALS: BP 113/53
[2017-03-30 16:39] VITALS: BP 142/72
[2017-03-30 19:50] VITALS: BP 131/62
[2017-03-30 23:25] VITALS: BP 148/65
[2017-03-31 03:54] VITALS: BP 134/60
[2017-03-31 06:03] LABS: EOSINOPHIL (%) 1.1 % (0-5); EOSINOPHIL COUNT 0.2 K/uL (0-0.3); HEMATOCRIT 27.7 % (36.0-46.0); IMMATURE GRANULOCYTE (%) 0.5 % (0.0-0.7); IMMATURE GRANULOCYTE COUNT 0.1 K/uL; INSTRUMENT ABS NEUTROPHIL CT 9.6 K/uL; LYMPHOCYTE COUNT 2.5 K/uL (1.0-2.8); MCH 29.3 PG (29.0-34.0); MCHC 32.5 G/DL (30.0-36.0); MCV 90.2 FL (83-99); MEAN PLAT.VOLUME 9.6 uM^3 (9.5-12.4); MONOCYTE COUNT 1.1 K/uL (0-0.8); NEUTROPHIL (%) 71.8 % (45-76); NEUTROPHIL COUNT 9.6 K/uL (1.8-6.4); PLATELET COUNT 282 K/uL (156-360); RBC DIS.WIDTH-CV 15.3 % (11.8-14.6); RBC DIS.WIDTH-SD 46.8 % (39-53); RED BLOOD COUNT 3.07 M/uL (3.80-5.20); WHITE BLOOD COUNT 13.4 K/uL (4.1-10.2)
[2017-03-31 06:28] LABS: ALKALINE PHOSPHATASE 66 IU/L (3-129); DIRECT BILIRUBIN 0.4 mg/dL (0.0-0.3); LACTATE DEHYDROGENASE 449 IU/L (20-246)
[2017-03-31 08:42] VITALS: BP 140/63
[2017-03-31 09:22] LABS: ANION GAP 10 MEQ/L (2-14); CHLORIDE 108 MEQ/L (99-109); GFR ESTIMATE (CALCULATED) > 59 mL/min/; POTASSIUM 3.4 MEQ/L (3.7-5.4); SODIUM 142 MEQ/L (136-147); UREA NITROGEN (BUN) 24 mg/dL (9-23)
[2017-03-31 09:23] LABS: GLUCOSE 108 mg/dL (70-99)
[2017-03-31 11:51] VITALS: BP 112/58
[2017-03-31 15:21] VITALS: BP 138/67
[2017-03-31 20:15] VITALS: BP 142/69
[2017-03-31 23:46] VITALS: BP 138/65
[2017-04-01 04:27] VITALS: BP 139/63
[2017-04-01 05:13] LABS: EOSINOPHIL (%) 0.8 % (0-5); EOSINOPHIL COUNT 0.1 K/uL (0-0.3); IMMATURE GRANULOCYTE (%) 0.5 % (0.0-0.7); IMMATURE GRANULOCYTE COUNT 0.1 K/uL; INSTRUMENT ABS NEUTROPHIL CT 10.4 K/uL; LYMPHOCYTE COUNT 1.9 K/uL (1.0-2.8); MCH 30.6 PG (29.0-34.0); MCHC 33.5 G/DL (30.0-36.0); MCV 91.5 FL (83-99); MEAN PLAT.VOLUME 9.5 uM^3 (9.5-12.4); MONOCYTE (%) 8.1 % (3-12); MONOCYTE COUNT 1.1 K/uL (0-0.8); NEUTROPHIL (%) 76.9 % (45-76); NEUTROPHIL COUNT 10.4 K/uL (1.8-6.4); PLATELET COUNT 302 K/uL (156-360); RBC DIS.WIDTH-CV 15.5 % (11.8-14.6); RBC DIS.WIDTH-SD 49.1 % (39-53); RED BLOOD COUNT 2.84 M/uL (3.80-5.20); WHITE BLOOD COUNT 13.6 K/uL (4.1-10.2)
[2017-04-01 05:36] LABS: ANION GAP 8 MEQ/L (2-14); CHLORIDE 109 MEQ/L (99-109); GFR ESTIMATE (CALCULATED) > 59 mL/min/; GLUCOSE 117 mg/dL (70-99); POTASSIUM 3.8 MEQ/L (3.7-5.4); SAMPLE HEMOLYSIS CHECK 0; SAMPLE ICTERIC CHECK 0; SAMPLE LIPEMIA CHECK 0; SODIUM 140 MEQ/L (136-147); UREA NITROGEN (BUN) 20 mg/dL (9-23)
[2017-04-01 07:03] LABS: ALKALINE PHOSPHATASE 71 IU/L (3-129); DIRECT BILIRUBIN 0.2 mg/dL (0.0-0.3); TOTAL BILIRUBIN 1.7 MG/DL (0.0-1.0)
[2017-04-01 07:04] LABS: LACTATE DEHYDROGENASE 673 IU/L (20-246)
[2017-04-01 07:45] VITALS: BP 129/60
[2017-04-01 11:30] VITALS: BP 130/63
[2017-04-01 15:23] VITALS: BP 133/62
== END 2017-04-01 18:24 | DRG 246 ==
LOC: EME → EDBD 19:28 → EME 19:28 → 4WEST 19:35 → 2SOUTH 19:35 → ENRESERV 19:45 → 2SOUTH 22:05 → 4WEST 22:19 → ENRESERV 03-28 07:54 → 4EAST 03-28 08:40 → ENRESERV 03-29 23:46 → CANRESERV 03-29 23:49 → 4EAST 04-01 18:24
PROVIDERS: Emergency Medicine; Hospitalist; Internal Medicine Cardiovascular Disease; Internal Medicine Critical Care Medicine; Internal Medicine Hematology & Oncology; Internal Medicine Pulmonary Disease; Physician Assistant Medical; Specialist; Student in an Organized Health Care Education/Training Program
PROC: 4A023N7 Measurement of Cardiac Sampling and Pressure, Left Heart, Percutaneous Approach (ICD-10-PCS; principal; 2017-03-21)
PROC: B2151ZZ Fluoroscopy of Left Heart using Low Osmolar Contrast (ICD-10-PCS; principal; 2017-03-21)
PROC: B2111ZZ Fluoroscopy of Multiple Coronary Arteries using Low Osmolar Contrast (ICD-10-PCS; principal; 2017-03-21)
PROC: 027036Z Dilation of Coronary Artery, One Artery with Three Drug-eluting Intraluminal Devices, Percutaneous Approach (ICD-10-PCS; principal; 2017-03-21)
PROC: 5A1945Z Respiratory Ventilation, 24-96 Consecutive Hours (ICD-10-PCS; 2017-03-21)
PROC: 02HV33Z Insertion of Infusion Device into Superior Vena Cava, Percutaneous Approach (ICD-10-PCS; 2017-03-22)
PROC: 30233N1 Transfusion of Nonautologous Red Blood Cells into Peripheral Vein, Percutaneous Approach (ICD-10-PCS; 2017-03-25)
DX: I21.29 ST elevation (STEMI) myocardial infarction involving other sites (principal); I46.2 Cardiac arrest due to underlying cardiac condition; J96.01 Acute respiratory failure with hypoxia; G93.1 Anoxic brain damage, not elsewhere classified; J69.0 Pneumonitis due to inhalation of food and vomit; I49.01 Ventricular fibrillation; R40.20 Unspecified coma; I25.82 Chronic total occlusion of coronary artery; I25.10 Atherosclerotic heart disease of native coronary artery without angina pectoris; D59.2 Drug-induced nonautoimmune hemolytic anemia; E87.6 Hypokalemia; I25.5 Ischemic cardiomyopathy; I47.1 Supraventricular tachycardia; I49.3 Ventricular premature depolarization; J44.9 Chronic obstructive pulmonary disease, unspecified; R56.9 Unspecified convulsions; R44.3 Hallucinations, unspecified; R17 Unspecified jaundice; E78.5 Hyperlipidemia, unspecified; I10 Essential (primary) hypertension; N39.3 Stress incontinence (female) (male); R73.03 Prediabetes; G47.00 Insomnia, unspecified; E66.9 Obesity, unspecified; F17.200 Nicotine dependence, unspecified, uncomplicated; Z68.30 Body mass index [BMI] 30.0-30.9, adult; Z79.82 Long term (current) use of aspirin
CPT/HCPCS: 36600; 71010; 80048; 80048 91; 80053; 80061; 80076; 80202; 81003; 82150; 82330; 82550; 82550 91; 82553; 82803; 82948; 83010 90; 83036; 83605; 83615; 83690; 83735; 83880; 84100; 84132 91; 84478; 84484; 85014; 85018; 85025; 85025 91; 85027; 85045; 85347; 85379; 85610; 85730; 86860; 86870; 86880; 86900; 86901; 86920; 87070; 87205; 87641; 92523 GN; 93005; 93306; 94002; 94003; 94640; 94640 76; 94799; 95819; 97530 GO; 99202; 99281; 99284; C1725; C1751; C1769; C1874; C1887; C1894; G0480; J0153; J0360; J0692; J1630; J1644; J1650; J1815; J1940; J1956; J2250; J2270; J2543; J2704; J3010; J3246; J3370; J7030; J7040; J7050; P9016; S0028

== ENCOUNTER 2017-03-31 12:02 | Inpatient (IN) | payer BC ==
[~2017-03-31] VITALS: Ht 165.1 cm; Wt 89.4 kg
[2017-04-01 18:33] VITALS: BP 120/57
[2017-04-01 19:14] VITALS: BP 120/57
[2017-04-01 22:53] VITALS: BP 144/77
[2017-04-02 05:16] VITALS: BP 129/59
[2017-04-02 06:27] LABS: HEMATOCRIT 26.3 % (36.0-46.0); MCH 29.1 PG (29.0-34.0); MCHC 31.6 G/DL (30.0-36.0); MCV 92.3 FL (83-99); MEAN PLAT.VOLUME 9.6 uM^3 (9.5-12.4); PLATELET COUNT 335 K/uL (156-360); RBC DIS.WIDTH-CV 15.4 % (11.8-14.6); RBC DIS.WIDTH-SD 49.1 % (39-53); RED BLOOD COUNT 2.85 M/uL (3.80-5.20); WHITE BLOOD COUNT 13.6 K/uL (4.1-10.2)
[2017-04-02 06:56] LABS: ALKALINE PHOSPHATASE 71 IU/L (3-129); ANION GAP 9 MEQ/L (2-14); CHLORIDE 108 MEQ/L (99-109); GFR ESTIMATE (CALCULATED) > 59 mL/min/; GLUCOSE 101 mg/dL (70-99); POTASSIUM 4.4 MEQ/L (3.7-5.4); SAMPLE HEMOLYSIS CHECK 0; SAMPLE ICTERIC CHECK 0; SAMPLE LIPEMIA CHECK 0; SODIUM 138 MEQ/L (136-147); TOTAL BILIRUBIN 1.3 MG/DL (0.0-1.0); UREA NITROGEN (BUN) 19 mg/dL (9-23)
[2017-04-02 06:57] LABS: LACTATE DEHYDROGENASE 393 IU/L (20-246)
[2017-04-02 15:08] VITALS: BP 155/82
[2017-04-03 05:10] VITALS: BP 126/60
[2017-04-03 07:29] LABS: BASOPHIL COUNT 0.1 K/uL (0-0.1); EOSINOPHIL (%) 1.5 % (0-5); EOSINOPHIL COUNT 0.2 K/uL (0-0.3); HEMATOCRIT 27.8 % (36.0-46.0); IMMATURE GRANULOCYTE (%) 0.5 % (0.0-0.7); IMMATURE GRANULOCYTE COUNT 0.1 K/uL; INSTRUMENT ABS NEUTROPHIL CT 9.6 K/uL; LYMPHOCYTE COUNT 2.2 K/uL (1.0-2.8); MCH 28.9 PG (29.0-34.0); MCHC 31.7 G/DL (30.0-36.0); MCV 91.4 FL (83-99); MEAN PLAT.VOLUME 9.5 uM^3 (9.5-12.4); MONOCYTE (%) 7.7 % (3-12); NEUTROPHIL (%) 73.1 % (45-76); NEUTROPHIL COUNT 9.6 K/uL (1.8-6.4); PLATELET COUNT 420 K/uL (156-360); RBC DIS.WIDTH-CV 15.1 % (11.8-14.6); RBC DIS.WIDTH-SD 47.8 % (39-53); RED BLOOD COUNT 3.04 M/uL (3.80-5.20); WHITE BLOOD COUNT 13.1 K/uL (4.1-10.2)
[2017-04-03 07:52] LABS: ALKALINE PHOSPHATASE 88 IU/L (3-129); DIRECT BILIRUBIN 0.3 mg/dL (0.0-0.3); LACTATE DEHYDROGENASE 367 IU/L (20-246); TOTAL BILIRUBIN 1.4 MG/DL (0.0-1.0)
[2017-04-03 15:58] VITALS: BP 142/66
[2017-04-04 05:03] VITALS: BP 141/63
[2017-04-04 05:47] LABS: BASOPHIL COUNT 0.1 K/uL (0-0.1); EOSINOPHIL (%) 1.6 % (0-5); EOSINOPHIL COUNT 0.2 K/uL (0-0.3); HEMATOCRIT 28.1 % (36.0-46.0); IMMATURE GRANULOCYTE (%) 0.6 % (0.0-0.7); IMMATURE GRANULOCYTE COUNT 0.1 K/uL; INSTRUMENT ABS NEUTROPHIL CT 8.6 K/uL; LYMPHOCYTE COUNT 2.3 K/uL (1.0-2.8); MCH 29.1 PG (29.0-34.0); MCV 90.9 FL (83-99); MONOCYTE (%) 8.9 % (3-12); MONOCYTE COUNT 1.1 K/uL (0-0.8); NEUTROPHIL (%) 69.7 % (45-76); NEUTROPHIL COUNT 8.6 K/uL (1.8-6.4); NRBC (%) 0.2 /100 WBC (0-0); RBC DIS.WIDTH-CV 15.2 % (11.8-14.6); RBC DIS.WIDTH-SD 48.9 % (39-53); RED BLOOD COUNT 3.09 M/uL (3.80-5.20); WHITE BLOOD COUNT 12.4 K/uL (4.1-10.2)
[2017-04-04 06:35] LABS: HEMATOLOGY COMMENT 1 SN; PLAT.SUFFICIENCY ADEQUATE; PLATELET COUNT UNABLE TO REPORT K/uL (156-360)
[2017-04-04 16:00] VITALS: BP 132/63
[2017-04-05 05:50] VITALS: BP 149/68
[2017-04-05 07:42] LABS: HEMATOCRIT 26.1 % (36.0-46.0); MCH 29.7 PG (29.0-34.0); MCHC 32.6 G/DL (30.0-36.0); MCV 91.3 FL (83-99); MEAN PLAT.VOLUME 9.1 uM^3 (9.5-12.4); RBC DIS.WIDTH-CV 15.1 % (11.8-14.6); RBC DIS.WIDTH-SD 48.5 % (39-53); RED BLOOD COUNT 2.86 M/uL (3.80-5.20); WHITE BLOOD COUNT 9.3 K/uL (4.1-10.2)
[2017-04-05 07:46] LABS: PLATELET COUNT 435 K/uL (156-360)
[2017-04-05 08:41] LABS: ALKALINE PHOSPHATASE 86 IU/L (3-129); ANION GAP 9 MEQ/L (2-14); CHLORIDE 104 MEQ/L (99-109); GFR ESTIMATE (CALCULATED) > 59 mL/min/; GLUCOSE 94 mg/dL (70-99); LACTATE DEHYDROGENASE 341 IU/L (20-246); POTASSIUM 4.3 MEQ/L (3.7-5.4); SAMPLE HEMOLYSIS CHECK 0; SAMPLE ICTERIC CHECK 0; SAMPLE LIPEMIA CHECK 0; SODIUM 137 MEQ/L (136-147); UREA NITROGEN (BUN) 14 mg/dL (9-23)
[2017-04-05 09:08] LABS: AMYLASE 32 IU/L (1-118); LIPASE 13 U/L (1.0-51.0)
[2017-04-05 14:21] LABS: ADD MIUA? YES; BILIRUBIN NEGATIVE; BLOOD SMALL; COLOR YELLOW ((YELLOW)); GLUCOSE (STRIP) 150; KETONES NEGATIVE; LEUKOCYTES NEGATIVE; NITRITE NEGATIVE; PROTEIN (STRIP) NEGATIVE; SPECIFIC GRAVITY 1.015 (1.000-1.030); UROBILINOGEN 0.2 MG/DL (0.2-1.0)
[2017-04-05 14:30] LABS: BACTERIA NONE SEEN /HPF; EPITHELIAL CELLS RARE /HPF; MUCUS TRACE /LPF; RED BLOOD CELLS 0-5 /HPF (0-5); WHITE BLOOD CELLS 0-5 /HPF (0-5)
[2017-04-05 15:29] VITALS: BP 145/68
[2017-04-05 20:20] VITALS: BP 127/59
[2017-04-06 05:36] VITALS: BP 127/57
[2017-04-06] MEDS ORDERED: ATORVASTATIN CA80 MG PO (07:06)
[2017-04-06] MEDS ORDERED: THERAGRAN1 TABLET PO (07:06)
[2017-04-06] MEDS ORDERED: LISINOPRIL10 MG PO (07:06)
[2017-04-06] MEDS ORDERED: CYANOCOBALAM1000 MCG PO (07:06)
[2017-04-06] MEDS ORDERED: SENNA PLUS TAB1 EACH PO (07:06)
[2017-04-06] MEDS ORDERED: NICOTINE PATCH1 EAC1 TD (07:06)
[2017-04-06] MEDS ORDERED: FAMOTIDINE20 MG PO (07:06)
[2017-04-06] MEDS ORDERED: CLOPIDOGREL75 MG PO (07:06)
[2017-04-06] MEDS ORDERED: CARVEDILOL12.5 MG PO (07:06)
[2017-04-06] MEDS ORDERED: ASPIR-LOW81 MG PO (07:06)
[2017-04-06] MEDS ORDERED: ADVAIR HFA120 INHALA IH (07:06)
[2017-04-06] MEDS ORDERED: SPIRIVA RESPIMAT4 GM IH (07:06)
[2017-04-06] MEDS ORDERED: FOLIC ACID1 MG PO (07:06)
== END 2017-04-06 11:25 | disposition home health service (06) | DRG 945 ==
LOC: 3WEST 12:02
PROVIDERS: Family Medicine; Internal Medicine Hematology & Oncology; Physical Medicine & Rehabilitation Pain Medicine
PROC: F07M0ZZ Range of Motion and Joint Mobility Treatment of Musculoskeletal System - Whole Body (ICD-10-PCS; principal; 2017-04-01)
DX: R53.1 Weakness (principal); R26.2 Difficulty in walking, not elsewhere classified; R49.0 Dysphonia; I21.29 ST elevation (STEMI) myocardial infarction involving other sites; G93.1 Anoxic brain damage, not elsewhere classified; J69.0 Pneumonitis due to inhalation of food and vomit; J44.9 Chronic obstructive pulmonary disease, unspecified; E66.01 Morbid (severe) obesity due to excess calories; E78.5 Hyperlipidemia, unspecified; I10 Essential (primary) hypertension; I25.5 Ischemic cardiomyopathy; I25.10 Atherosclerotic heart disease of native coronary artery without angina pectoris; R74.0 Nonspecific elevation of levels of transaminase and lactic acid dehydrogenase [LDH]; D58.9 Hereditary hemolytic anemia, unspecified; E83.51 Hypocalcemia; F17.210 Nicotine dependence, cigarettes, uncomplicated; Z68.32 Body mass index [BMI] 32.0-32.9, adult; Z95.5 Presence of coronary angioplasty implant and graft; Z79.02 Long term (current) use of antithrombotics/antiplatelets; Z79.82 Long term (current) use of aspirin
CPT/HCPCS: 71020; 76700; 80053; 80076; 81003; 82150; 83615; 83690; 85025; 85027; 87077; 87086; 87186; 92523 GN; 94060; 94640; 94640 76; 94664; 94726; 94729; 97110 GO; 97530 GP; 97532 GN; J0692; J1650; J3370; J7050

== ENCOUNTER 2017-04-19 06:40 | Observation (INO) | payer BC ==
[~2017-04-19] VITALS: Ht 160 cm; Wt 80.7 kg
[~2017-04-19 06:40] MED LIST: ADVAIR HFA120 INHALA IH; ASPIR-LOW81 MG PO; ATORVASTATIN CA80 MG PO; CARVEDILOL12.5 MG PO; CLOPIDOGREL75 MG PO; CYANOCOBALAM1000 MCG PO; FAMOTIDINE20 MG PO; FOLIC ACID1 MG PO; LISINOPRIL10 MG PO; NICOTINE PATCH1 EAC1 TD; SENNA PLUS TAB1 EACH PO; SPIRIVA RESPIMAT4 GM IH; THERAGRAN1 TABLET PO
[2017-04-19] MEDS ORDERED: PRINIVIL20 MG PO (11:30)
[2017-04-19 12:30] VITALS: BP 150/63
[2017-04-19 17:15] VITALS: BP 125/59
[2017-04-19 20:26] VITALS: BP 117/56
[2017-04-19 23:38] VITALS: BP 120/58
[2017-04-20 04:12] VITALS: BP 135/69
[2017-04-20 08:55] VITALS: BP 147/67
[2017-04-20] MEDS ORDERED: PREDNISONE20 MG PO (09:35)
[2017-04-20] MEDS ORDERED: BENADRYL25 MG PO (11:10)
== END 2017-04-20 13:26 | disposition home or self-care (01) ==
LOC: EME 06:40 → EDOF 11:06 → 5WEST 11:06 → ENRESERV 11:11 → 5WEST 12:15
DX: T78.3XXA Angioneurotic edema, initial encounter (principal); J44.9 Chronic obstructive pulmonary disease, unspecified; I25.2 Old myocardial infarction; I25.10 Atherosclerotic heart disease of native coronary artery without angina pectoris; Z95.5 Presence of coronary angioplasty implant and graft; D64.9 Anemia, unspecified; F17.200 Nicotine dependence, unspecified, uncomplicated; Z79.02 Long term (current) use of antithrombotics/antiplatelets; I10 Essential (primary) hypertension; E78.5 Hyperlipidemia, unspecified; Z88.0 Allergy status to penicillin
CPT/HCPCS: 94640; 94640 76; 94760; 99202; 99281; 99285; G0378; J1200; J2930; J7512; S0028

== ENCOUNTER 2017-06-28 19:28 | Inpatient (IN) | payer BC ==
[~2017-06-28] VITALS: Ht 161.3 cm; Wt 80.0 kg
[~2017-06-28 19:28] MED LIST changes: +BENADRYL25 MG PO; +PREDNISONE20 MG PO; +PRINIVIL20 MG PO
[2017-06-28] MEDS ORDERED: AMLODIPINE BESYL5 MG PO (20:04)
[2017-06-28] MEDS ORDERED: LASIX40 MG PO (20:05)
[2017-06-28] MEDS ORDERED: OXAYDO5 MG PO (20:05)
[2017-06-28] MEDS ORDERED: KLOR-CON M2020 MEQ PO (20:05)
[2017-06-28 21:16] LABS: HEMATOCRIT 32.1 % (36.0-46.0); MCH 29.7 PG (29.0-34.0); MCHC 32.7 G/DL (30.0-36.0); MCV 90.9 FL (83-99); MEAN PLAT.VOLUME 8.4 uM^3 (9.5-12.4); PLATELET COUNT 643 K/uL (156-360); RBC DIS.WIDTH-CV 14.2 % (11.8-14.6); RED BLOOD COUNT 3.53 M/uL (3.80-5.20); WHITE BLOOD COUNT 11.2 K/uL (4.1-10.2)
[2017-06-28 21:27] LABS: INTER. NORMALIZED RATIO 1.2; PROTHROMBIN TIME 13.5 SEC (10.2-12.9)
[2017-06-28 21:30] LABS: CHLORIDE 106 mEq/L (99-109); POTASSIUM 3.9 mEq/L (3.7-5.4); PTT 27.7 SEC (25-37); SODIUM 139 mEq/L (136-147)
[2017-06-28 21:32] LABS: GLUCOSE 161 mg/dL (70-99)
[2017-06-28 21:34] LABS: ANION GAP 10 MEQ/L (2-14)
[2017-06-28 21:36] LABS: GFR ESTIMATE (CALCULATED) 44 mL/min/
[2017-06-28 21:37] LABS: UREA NITROGEN (BUN) 24 mg/dL (9-23)
[2017-06-28 21:40] LABS: TROP-I INTERPRETATION NEGATIVE; TROPONIN-I 0.14 ng/mL (0.0-0.30)
[2017-06-28] MEDS ORDERED: SPIRIVA RESPIMAT4 GM IH (23:06)
[2017-06-28] MEDS ORDERED: ATORVASTATIN CA80 MG PO (23:06)
[2017-06-28] MEDS ORDERED: ASPIR 8181 M1 PO (23:07)
[2017-06-28] MEDS ORDERED: THERAGRAN1 TABLET PO (23:07)
[2017-06-28] MEDS ORDERED: OXYCODONE HCL5 MG PO (23:07)
[2017-06-29] VITALS (7 sets, daily range): BP systolic 130–168; BP diastolic 65–78
[2017-06-29 05:04] LABS: TROP-I INTERPRETATION NEGATIVE; TROPONIN-I 0.15 ng/mL (0.0-0.30)
[2017-06-29 06:00] LABS: ADD MIUA? YES; BILIRUBIN NEGATIVE; BLOOD SMALL; COLOR YELLOW ((YELLOW)); GLUCOSE (STRIP) NEGATIVE; KETONES NEGATIVE; LEUKOCYTES NEGATIVE; NITRITE NEGATIVE; PROTEIN (STRIP) NEGATIVE; UROBILINOGEN 0.2 MG/DL (0.2-1.0)
[2017-06-29 06:15] LABS: BACTERIA NONE SEEN /HPF; EPITHELIAL CELLS 1+ /HPF; MUCUS TRACE /LPF; RED BLOOD CELLS NONE SEEN /HPF (0-5); UCUL ADDED? NO; WHITE BLOOD CELLS 0-5 /HPF (0-5)
[2017-06-29 10:11] LABS: TROP-I INTERPRETATION NEGATIVE; TROPONIN-I 0.14 ng/mL (0.0-0.30)
[2017-06-30] VITALS (7 sets, daily range): BP systolic 117–141; BP diastolic 58–78
[2017-06-30 15:02] LABS: ANION GAP 10 MEQ/L (2-14); CHLORIDE 100 MEQ/L (99-109); GFR ESTIMATE (CALCULATED) > 59 mL/min/; GLUCOSE 207 mg/dL (70-99); POTASSIUM 3.4 MEQ/L (3.7-5.4); SAMPLE HEMOLYSIS CHECK 0; SAMPLE ICTERIC CHECK 0; SAMPLE LIPEMIA CHECK 0; SODIUM 140 MEQ/L (136-147); UREA NITROGEN (BUN) 32 mg/dL (9-23)
[2017-07-01 03:58] VITALS: BP 133/67
[2017-07-01 05:56] LABS: ANION GAP 10 MEQ/L (2-14); CHLORIDE 98 MEQ/L (99-109); GFR ESTIMATE (CALCULATED) > 59 mL/min/; POTASSIUM 3.6 MEQ/L (3.7-5.4); SAMPLE HEMOLYSIS CHECK 0; SAMPLE ICTERIC CHECK 0; SAMPLE LIPEMIA CHECK 0; SODIUM 136 MEQ/L (136-147); UREA NITROGEN (BUN) 28 mg/dL (9-23)
[2017-07-01 05:58] LABS: GLUCOSE 109 mg/dL (70-99)
[2017-07-01 07:38] VITALS: BP 131/64
[2017-07-01] MEDS ORDERED: CARVEDILOL25 MG PO (10:37)
[2017-07-01] MEDS ORDERED: FUROSEMIDE40 MG PO (10:37)
[2017-07-01] MEDS ORDERED: K-DUR20 MEQ PO (10:37)
== END 2017-07-01 11:44 | disposition home health service (06) | DRG 292 ==
LOC: EME → EDBD 19:28 → EDOF 23:05 → 4EAST 23:05 → ENRESERV 23:07 → 4EAST 06-29 03:17 → ENPENDDIS 07-01 → 4EAST 07-01 11:44
PROVIDERS: Emergency Medicine; Family Medicine; Physician Assistant Medical
DX: I11.0 Hypertensive heart disease with heart failure (principal); I50.43 Acute on chronic combined systolic (congestive) and diastolic (congestive) heart failure; N17.9 Acute kidney failure, unspecified; I25.5 Ischemic cardiomyopathy; J44.9 Chronic obstructive pulmonary disease, unspecified; R09.02 Hypoxemia; D64.9 Anemia, unspecified; E78.5 Hyperlipidemia, unspecified; I25.10 Atherosclerotic heart disease of native coronary artery without angina pectoris; R73.9 Hyperglycemia, unspecified; E66.9 Obesity, unspecified; Z68.30 Body mass index [BMI] 30.0-30.9, adult; I25.2 Old myocardial infarction; Z79.02 Long term (current) use of antithrombotics/antiplatelets; Z79.82 Long term (current) use of aspirin; Z87.891 Personal history of nicotine dependence; Z95.1 Presence of aortocoronary bypass graft; Z95.5 Presence of coronary angioplasty implant and graft; Z88.0 Allergy status to penicillin
CPT/HCPCS: 71010; 71020; 71250; 76942; 80048; 81003; 83880; 84484; 85027; 85610; 85730; 93005; 93306; 93971; 94640; 94640 76; 94799; 99281; 99285; J1650; J1940